=== PATIENT | male | born 1950 | race African-American/Black ===

== ENCOUNTER 2017-06-20 19:08 | Observation (INO) | payer MEDICARE, OTHER ==
[2017-06-20 19:32] LABS: Hemoglobin 13.9 g/dL (14.0-18.0); Mean Corpuscular HGB CONC 33.9 g/dL (32.0-36.0); Mean Corpuscular Hemoglobin 32.8 pg (27.0-31.0); Mean Corpuscular Volume 96.8 fl (80.0-94.0); Mean Platelet Volume 6.2 fL (7.4-10.4); Platelet Count 229 thou/uL (130-400); RBC Distribution Width 12.3 % (11.5-14.5); Red Blood Cell (RBC) Count 4.23 mill/uL (4.70-6.10); White Blood Cell (WBC) Count 5.6 thou/uL (4.8-10.8)
[2017-06-20 19:48] LABS: ALT (SGPT) 16 U/L (8-55); AST (SGOT) 18 U/L (5-34); Albumin 3.7 g/dL (3.4-4.8); Alkaline Phosphatase 83 U/L (40-150); Anion Gap 14 mmol/L (10-20); BUN (Urea Nitrogen) 15 mg/dL (8.4-25.7); Bilirubin, Total 0.9 mg/dL (0.2-1.2); CK (CPK) 117 U/L (30-200); Calc. Creatinine Clearance 0 mL/min (70-130); Calcium 9.7 mg/dL (7.8-10.44); Carbon Dioxide 24 mmol/L (23-31); Chloride 105 mmol/L (98-107); Estimated GFR-MDRD Greater than 90; Globulin 3.1 g/dL (2.4-3.5); Glucose 87 mg/dL (80-115); Potassium 3.9 mmol/L (3.5-5.1); Protein, Total 6.8 g/dL (5.8-8.1); Sodium 139 mmol/L (136-145)
[2017-06-20 19:49] LABS: Band 1 % (5-11); Eosinophils 8 % (0-10); Lymphocytes 53 % (21-51); MDiff Complete? YES; Monocytes 5 % (0-10); Neutrophil 26 % (42-75); PLT Morphology Comment Appears Adequate; RBC Morphology Normal; Reactive Lymphocytes 5 % (0-10)
[2017-06-20 19:52] LABS: CKMB 1.8 ng/mL (0-6.6); Troponin I Less than 0.010 ng/mL (< 0.028)
--- NOTE | 2017-06-20 20:11 | RAD ---
PORTABLE AP CHEST X-RAY 06/20/17 HISTORY: Syncopal episode x2. Patient complains of chest pain. Low blood pressure. COMPARISON: None available. FINDINGS: Cardiac silhouette and pulmonary vasculature are within normal limits. The lungs are clear. Osseous structures are intact. Vascular calcifications are seen in the thoracic aorta. IMPRESSION: No acute cardiopulmonary process. POS: [facility]
[2017-06-20] MEDS ORDERED: Acetaminophen 325 MG TAB PO PRN (22:06)
[2017-06-20] MEDS ORDERED: Nitroglycerin 0.4 MG TAB (25 Tab Bottle) PO PRN (22:06)
[2017-06-20] MEDS ORDERED: Ondansetron ODT 4 MG TAB PO PRN (22:06)
[2017-06-20] MEDS ORDERED: hydrALAZINE 20 MG/ML VIAL SLOW IVP SCH (22:15)
[2017-06-20 22:43] VITALS: BMI 21.1
[2017-06-20 23:00] LABS: Troponin I Less than 0.010 ng/mL (< 0.028)
--- NOTE | 2017-06-20 23:30 | PDOC.FPRHP ---
- History of Present Illness Chief Complaint: Syncopal episode, Chest pain 3 days ago History of Present Illness: 66 year old male with untreated HTN presents after a syncopal episode. He states he was sitting at a restaurant with his family waiting on food when he suddenly felt his vision go "fuzzy" and next thing he knew he had passed out. He denied any confusion upon waking up. He was immediately able to start communicating with family regarding the event. EMS arrived and noted his BP to be systolic in 70's. They started him on fluids during transport to ED. In the ED he was given 1L of NS and his BP responded rapidly. Patient currently denies weakness, dizziness, confusion, chest pain, or shortness of breath. Patient has never had a syncopal episode in the past. Patient did complain of an episode of chest pain 3 days ago that last for 2 hours and resolved on its own. Patient endorses a "gassy" feeling that sometimes radiates up into the chest, but otherwise has not discomfort. ED Course: Given ASA 324 mg PO in ED. - Allergies/Adverse Reactions Allergies Allergy/AdvReac Type Severity Reaction Status Date / Time No Known Allergies Allergy Verified 06/20/17 22:33 - Home Medications Medication Instructions Recorded Confirmed Type No Known [No Known] 06/20/17 06/20/17 History - History PMHx: HTN PSHx: None FHx: Non-contributory Social: Patient admits to smoking 1 PPD for the past 30 years. He drinks 2 beers a night. Patient denies drug use. - Review of Systems General: denies: fever/chills, weight/appetite/sleep changes Eyes: denies: vision changes ENT: denies: nasal congestion, rhinorrhea Respiratory: denies: cough, congestion, shortness of breath Cardiovascular: denies: chest pain, palpitation, edema Gastrointestinal: denies: nausea, vomiting, constipation, abdominal pain, GI bleeding Genitourinary: denies: incontinence, dysuria Skin: denies: rashes Musculoskeletal: denies: pain Psychological: denies: anxiety, depression - Vital signs BP: [220/90] HR: [71] RR: [14] Tmax: [97.8] Pox: [99]% on [RA] Wt: [63 kg] - Physical Exam Constitutional: NAD, awake, alert and oriented, well developed HEENT: normocephalic and atraumatic, PERRLA, EOMI, no scleral icterus Neck: supple Heart: RRR, normal S1/S2, no murmurs/rubs/gallops, pulses present, no edema Lungs: CTAB, no respiratory distress, no wheezing, no retractions Abdomen: soft, non-tender, bowel sounds present -Abdomen: mild abdominal distention Neurological: no focal deficit, CN II-XII intact Skin: no rash/lesions Heme/Lymphatic: no unusual bruising or bleeding Psychiatric: normal mood and affect, good judgment and insight FMR H&P: Results - Labs Result Diagrams: 06/20/17 19:26 06/20/17 19: Lab results: WBC 5.6 thou/uL (4.8-10.8) 06/20/17 19: Hgb 13.9 g/dL (14.0-18.0) L 06/20/17 19: Hct 41.0 % (42.0-52.0) L 06/20/17 19: MCV 96.8 fl (80.0-94.0) H 06/20/17 19: Plt Count 229 thou/uL (130-400) 06/20/17 19: Band Neuts % (Manual) 1 % (5-11) L 06/20/17 19: Sodium 139 mmol/L (136-145) 06/20/17 19: Potassium 3.9 mmol/L (3.5-5.1) 06/20/17 19: Chloride 105 mmol/L (98-107) 06/20/17 19: Carbon Dioxide 24 mmol/L (23-31) 06/20/17 19: BUN 15 mg/dL (8.4-25.7) 06/20/17 19: Creatinine 0.88 mg/dL (0.6-1.3) 06/20/17 19: Glucose 87 mg/dL (80-115) 06/20/17 19: Calcium 9.7 mg/dL (7.8-10.44) 06/20/17 19: Total Bilirubin 0.9 mg/dL (0.2-1.2) 06/20/17 19: AST 18 U/L (5-34) 06/20/17 19:26 ALT 16 U/L (8-55) 06/20/17 19:26 Alkaline Phosphatase 83 U/L (40-150) 06/20/17 19:26 Creatine Kinase 117 U/L (30-200) 06/20/17 19:26 CK-MB (CK-2) 1.8 ng/mL (0-6.6) 06/20/17 19:26 B-Natriuretic Peptide 59.8 pg/mL (0-100) 06/20/17 19:26 Serum Total Protein 6.8 g/dL (5.8-8.1) 06/20/17 19:26 Albumin 3.7 g/dL (3.4-4.8) 06/20/17 19:26 - Radiology Interpretation Chest x-ray Status: report reviewed by me Additional comment: No acute cardiopulmonary process FMR H&P: A/P - Problem List (1) Syncope Current Visit: Yes Status: Acute Code(s): R55 - SYNCOPE AND COLLAPSE (2) Atypical chest pain Current Visit: Yes Status: Acute Code(s): R07.89 - OTHER CHEST PAIN (3) Hypertensive urgency Current Visit: Yes Status: Acute Code(s): I16.0 - HYPERTENSIVE URGENCY (4) HTN (hypertension) Current Visit: Yes Status: Chronic Code(s): I10 - ESSENTIAL (PRIMARY) HYPERTENSION - Plan 1. Syncopal episode - Likely vasovagal - BP low on admission with systolic BP in the 70's; responded to 1L fluids - No history of pre-existing heart disease, but has history of untreated HTN - No prior syncopal episodes - EKG with t wave changes - Echo pending 2. Atypical chest pain - One episode of chest pain lasting 2 hours 3 days ago - Intermittent "gas" pains that radiate up into the chest - Heart score of 4 (t wave inversion, age, HTN, tobacco abuse history) - Stress test in AM - NPO at midnight - ASA PO QD - FLP, HgA1c, TSH pending - Nitro PRN - Simethicone for gas pains 3. HTN urgency - BP up to 247/116 - Patient asymptomatic - BP responded to 169/77 after 10 mg hydralazine - Started patient on 12.5 mg chlorthalidone PO daily - Hydralazine PRN for SBP >180 mmHg 4. HTN - Untreated - Started patient on chlorthalidone 5. DVT PPX: lovenox 6. Code status: Full Dispo: Admit to telemetry for observation. Plan for echo and cardiac stress test in AM. Plan to d/c patient home on HTN medication pending echo and stress test results. FMR H&P: Upper Level - Pertinent history 66 yo AAM with PMH of HTN p/w CP and SOB for last 3 days. - Pertinent findings BP 169/77, other vitals wnl Gen: NAD, well developed, A&Ox3 CV: RRR, no reproducible TTP, radial pulses equal BL Resp: normal effort, CTAB Abd: mild distension, BS+, NTTP - Plan Date/Time: 06/20/17 9620 I, Sami Smith MD, have evaluated this patient and agree with findings/plan as outlined by internet marketing intern resident. Pertinent changes/additions are listed here. 1. Atypical CP with EKG changes -HEART score of 4 with age, HTN, and T wave inversions -no recurrence of CP since presentation to hospital -trend troponins x3 -risk stratify with FLP, TSH, A1c -cardiac stress test in AM -nitro PRN 2. HTN -not on any home medications -likely initiate oral therapy -PRNs available, continue to monitor 3. FULL code 4. PPx: lovenox for VTE, no GI indicated disposition: Admit to telemetry observation, plan for cardiac stress test and continue to monitor. Attending Addendum - Attending Addendum Date/Time: 06/21/17 6910 I personally evaluated the patient and discussed the management with Dr. Rios on 06/20/17. I agree with the History, Examination, Assessment and Plan documented above with any addition or exceptions noted below. The patient presented following a syncopal episode. During my exam he was hypertensive with systolic 195. Patient will be admitted for tele monitoring, stress test and echo. Will begin antihypertensives.
[2017-06-21 02:01] LABS: Troponin I Less than 0.010 ng/mL (< 0.028)
[2017-06-21] MEDS ORDERED: Simethicone Chewable 80 MG TAB PO PRN (03:57)
[2017-06-21 05:01] LABS: Hemoglobin A1c 5.3 % (4.0-6.0)
[2017-06-21 05:04] LABS: Cardiac Risk 3.6 (Less than 4.5)
--- NOTE | 2017-06-21 05:59 | PDOC.FM ---
- Subjective Subjective: Mr. Reza seen at bedside this morning, he is feeling well. He has no complaints and there were no acute events overnight. Patient denies feeling lightheaded or presyncopal. Denies any chest pain, fevers, chills, dyspnea, n/v /d. He is ready for his stress test this morning. - Objective MAR Reviewed: Yes Vital Signs & Weight: Vital Signs (12 hours) Temp Pulse Resp BP Pulse Ox 06/21/17 03:12 98.7 F 77 20 178/81 H 95 06/20/17 23:13 74 14 169/77 H 96 06/20/17 22:48 97.8 F 71 14 06/20/17 22:23 220/90 H Weight Weight 63.049 kg I&O: 06/19/17 06/20/17 06/21/17 06:59 06:59 06:59 Intake Total 240 Balance 240 Result Diagrams: 06/20/17 19:26 06/20/17 19:26 <Ole Leon - Last Filed: 06/21/17 06:39> - Objective Vital Signs & Weight: Vital Signs (12 hours) Temp Pulse Resp BP BP BP BP 06/21/17 15:12 99.2 F 95 16 161/72 H 06/21/17 12:59 161/72 H 06/21/17 12:20 94 06/21/17 11:53 97.7 F 94 16 228/107 H 06/21/17 08:00 98.6 F 77 16 06/21/17 07:23 98.6 F 77 16 229/100 H 189/100 H 203/87 H Pulse Ox 06/21/17 15:12 97 06/21/17 12:59 06/21/17 12:20 06/21/17 11:53 98 06/21/17 08:00 06/21/17 07:23 97 Weight Weight 63.049 kg I&O: 06/20/17 06/21/17 06/22/17 06:59 06:59 06:59 Intake Total 240 Balance 240 Result Diagrams: 06/20/17 19:26 06/20/17 19:26 <Katerine Jamison - Last Filed: 06/21/17 16:10> Phys Exam - Physical Examination Constitutional: NAD HEENT: moist MMs, sclera anicteric Neck: no JVD, supple, full ROM Respiratory: no rales, no rhonchi, wheezing present, clear to auscultation bilateral Cardiovascular: RRR, no significant murmur Gastrointestinal: soft, non-tender, no distention Musculoskeletal: no edema, pulses present Neurological: non-focal, moves all 4 limbs Psychiatric: normal affect, A&O x 3 Skin: no rash <Ole Leon - Last Filed: 06/21/17 06:39> Dx/Plan (1) Syncope Code(s): R55 - SYNCOPE AND COLLAPSE Status: Acute (2) Atypical chest pain Code(s): R07.89 - OTHER CHEST PAIN Status: Acute (3) Hypertensive urgency Code(s): I16.0 - HYPERTENSIVE URGENCY Status: Acute (4) HTN (hypertension) Code(s): I10 - ESSENTIAL (PRIMARY) HYPERTENSION Status: Chronic - Plan Plan: 1. Syncopal episode - Likely vasovagal - BP low on admission with systolic BP in the 70's; responded to 1L fluids, patient's BP rapidly markus to 220s systolic - No history of pre-existing heart disease, but has history of untreated HTN - No prior syncopal episodes - EKG with t wave changes - Echo pending - TSH nl, BNP nl, Neg trop X3 2. Atypical chest pain - One episode of chest pain lasting 2 hours 3 days ago - Intermittent "gas" pains that radiate up into the chest - Heart score of 4 (t wave inversion, age, HTN, tobacco abuse history) - Stress test in AM - NPO at midnight - ASA PO QD - FLP, HgA1c, TSH, BNP all normal - Nitro PRN - Simethicone for gas pains 3. HTN urgency - BP up to 247/116 - Patient asymptomatic - BP responded to 169/77 after 10 mg hydralazine - Started patient on 12.5 mg chlorthalidone PO daily - Hydralazine PRN for SBP >180 mmHg - Continue to monitor closely 4. HTN - Untreated - Started patient on chlorthalidone 5. DVT PPX: lovenox 6. Code status: Full <Ole Leon - Last Filed: 06/21/17 06:39> (1) Syncope Code(s): R55 - SYNCOPE AND COLLAPSE Status: Acute (2) Atypical chest pain Code(s): R07.89 - OTHER CHEST PAIN Status: Acute (3) Hypertensive urgency Code(s): I16.0 - HYPERTENSIVE URGENCY Status: Acute (4) HTN (hypertension) Code(s): I10 - ESSENTIAL (PRIMARY) HYPERTENSION Status: Chronic <Katerine Jamison - Last Filed: 06/21/17 16:10> Attending Addendum - Attending Addendum Date/Time: 06/21/17 3087 I personally evaluated the patient and discussed the management with Dr. Leon. I agree with the History, Examination, Assessment and Plan documented above with any addition or exceptions noted below. Patient is feeling better this morning. Will have stress test, echo and carotid doppler today. <Katerine Jamison - Last Filed: 06/21/17 16:10>
[2017-06-21] MEDS: hydrALAZINE 20 MG/ML VIAL SLOW IVP PRN ×2 (08:08→12:20)
[2017-06-21] MEDS ORDERED: Chlorthalidone 25 MG TAB PO SCH (09:00)
[2017-06-21] MEDS ORDERED: Enoxaparin Sodium 40 MG/0.4 ML SYRINGE SC SCH (09:00)
--- NOTE | 2017-06-21 10:50 | ULT ---
CAROTID ULTRASOUND WITH DOPPLER: Date: 06/21/17 HISTORY: Syncope. COMPARISON: None. TECHNIQUE: Quesada scale, color flow, Doppler imaging, and spectral waveform analysis performed in the carotid and vertebral arteries. FINDINGS: RIGHT CAROTID: No significant atherosclerotic disease. Peak systolic velocity of the common carotid artery is 119.1 cm/second. Peak systolic velocity of the internal carotid artery is 74.2 cm/second. Systolic ICA/CCA ratio is 0.62. LEFT CAROTID: No significant atherosclerotic disease. Peak systolic velocity of the common carotid artery is 123.7 cm/second. Peak systolic velocity of the internal carotid artery is 86.6 cm/second. Systolic ICA/CCA ratio is 0.70. Antegrade flow in bilateral vertebral arteries. IMPRESSION: No sonographic evidence of hemodynamically significant stenosis. POS: [facility]
--- NOTE | 2017-06-21 12:55 | NM ---
NUCLEAR MEDICINE CARDIAC STRESS WITH EJECTION FRACTION AND WALL MOTION: Date: 06/21/17 HISTORY: Chest pain. Evaluate for myocardial infarction. Hypertension. Smoker. COMPARISON: None. TECHNIQUE: The patient was administered 10.6 mCi of technetium-99m sestamibi for rest imaging and 27 mCi of tech netium-99m sestamibi for stress imaging. FINDINGS: Homogeneous distribution of the radiotracer in the left ventricle on the attenuation correction image s. No reversibility or fixed defect. TID is 0.97. End-diastolic volume is 100 mL. End-systolic volume is 60 mL. CARDIAC GATING: Normal motion and thickening. Ejection fraction is 60%. IMPRESSION: 1. No reversibility. No fixed defect. 2. Ejection fraction is 60%. POS: [facility]
[2017-06-21 13:00] VITALS: BP 161/72
[2017-06-21] MEDS ORDERED: Amlodipine 5 MG TAB PO SCH ×2 (13:30→13:45)
[2017-06-21] MEDS ORDERED: Simethicone Chewable 80 MG TAB PO SCH ×2 (13:30→13:45)
[2017-06-21 15:47] VITALS: TEMP 99.2
--- NOTE | 2017-06-21 19:57 | DIS-2 ---
DATE OF ADMISSION: 06/20/2017 DATE OF DISCHARGE: 06/21/2017 RESIDENT: Ole Leon MD ADMITTING ATTENDING: Dr. Jamison. DISCHARGE ATTENDING: Dr. Jamison. CONSULTATIONS: None. PROCEDURES: 1. Chest x-ray on 06/20/2017, impression: No acute cardiopulmonary process. 2. Transthoracic echocardiogram on 06/21/2017 pending. 3. Nuclear stress test on 06/21/2017, impression: No reversibility, no fixed defect. Ejection frac tion is 60%. 4. Carotid Doppler study on 06/21/2017, impression: No sonographic evidence of hemodynamically sign ificant stenosis. PRIMARY IMPRESSION: 1. Atypical chest pain. 2. Hypertensive urgency. 3. Syncopal episode. DISCHARGE MEDICATIONS: 1. Amlodipine 5 mg p.o. daily. 2. Aspirin 81 mg p.o. daily. 3. Lipitor 80 mg p.o. at bedtime. 4. Chlorthalidone 12.5 mg p.o. daily. 5. Nitroglycerin 0.4 mg p.o. q.5 minute p.r.n. HISTORY OF PRESENT ILLNESS AND HOSPITAL COURSE: Sheldon Reza is a 66-year-old male with past [facility] history of untreated hypertension who presents after a syncopal episode. He was sitting in a res taurant with his family, waiting on food when he suddenly felt his vision got fuzzy and the next thin g he knew he passed out. He denied any confusion upon waking, he was immediately able to start commu nicating with his family regarding the event. When EMS arrived, his blood pressure was in the 70s sy stolic. They started him on IV fluids and transported him to the ED. His blood pressure responded r apidly to the IV fluids. He denied any weakness, dizziness, confusion, chest pain, shortness of pawan th. He has never had a syncopal episode like this in the past. The patient did, however, complain o f an episode of chest pain 3 days ago, lasted for 2 hours and resolved on its own. The patient endor ses a gassy feeling that sometimes radiates up to the chest, but otherwise had no discomfort. In the ED, he received 1 liter of normal saline and aspirin 324 mg p.o., patient was placed on observation for syncopal episode. Echo was done, which is pending. Carotid Doppler was done which was unremarka ble. Nuclear medicine stress test was done and was normal. The patient's syncopal episode was likel y secondary to vasovagal response, atypical chest pain, likely gastrointestinal in etiology. A stres s test was normal. Patient's blood pressure while in the hospital was controlled with IV hydralazine . Patient's blood pressure responded to Norvasc and chlorthalidone was also added to his regimen. T he patient was stable for discharge on 06/21/2017. He was asymptomatic and he agreed to close follow up with [facility]. Patient instructed to return to the ED if he has any other symptoms o f chest pain or syncopal type symptoms. 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 DISPOSITION: Stable. DISCHARGE INSTRUCTIONS: 1. Location: Home. 2. Diet: Heart healthy. 3. Activity: As tolerated. 4. 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
[2017-06-21] MEDS ORDERED: Atorvastatin Calcium 40 MG TAB PO SCH ×2 (21:00)
--- NOTE | 2017-06-21 22:36 | STRESS ---
Acquisition Time: 2017-06-21 10:02:36 Total Exercise Time: 00:06:01 Test Indications: CHEST PAIN Medications: Protocol: NA Max HR: 144 BPM 92% of Pred: 155 BPM Max BP: 210/094 mmHG Max Work Load: 7.0 METS RESTING ECG: NORMAL SINUS RHYTHM AT 75 BPM WITH LEFT VENTRICULAR HYPERTROPHY AND NON-SPECIFIC ST SEGMENT AND T-WAVE ABNORMALITIES SYMPTOMS: FATIGUE HYPERTENSIVE BLOOD PRESSURE RESPONSE ECTOPY: RARE PVCs ECG STRESS: NO SIGNIFICANT CHANGES INTERPRETATION: NEGATIVE ECG/AWAIT NUCLEAR IMAGES FOR DEFINITIVE DIAGNOSIS Confirmed by PATRICK HAAS M.D. ([id number]) on 06/21/2017 10:35:26 PM Referred By: Yvon MCKEON Confirmed By:PATRICK HAAS M.D.
[2017-06-22] MEDS ORDERED: Amlodipine 5 MG TAB PO SCH (09:00)
== END 2017-06-21 19:24 | disposition home or self-care (01) ==
LOC: ERS 19:08 → 2SW 21:54
PROVIDERS: ADMIT Family Medicine; ATTEND Family Medicine
DX: R55 Syncope and collapse (principal); I16.0 Hypertensive urgency; R07.89 Other chest pain; I10 Essential (primary) hypertension; F17.210 Nicotine dependence, cigarettes, uncomplicated; Z79.899 Other long term (current) drug therapy
CPT/HCPCS: 36415; 71045; 78452; 80053; 80061; 82550; 82553; 83036; 83880; 84443; 84484; 85025; 93005; 93017; 93306; 93880; 96374; 96376; 99406; A9500; G0378; J0360

== ENCOUNTER 2019-06-08 14:51 | Outpatient (CLI) | payer OTHER ==
--- NOTE | 2019-06-08 15:03 | RAD ---
XR Chest Pa Lat STANDARD History: Cough. Shortness of breath Comparison: None. Findings: Lungs are clear. No pneumothorax or effusion. Cardiac silhouette and mediastinal contours a re within normal limits. No acute osseous abnormality. Impression: No acute intrathoracic abnormality.
== END 2019-06-08 14:52 | disposition home or self-care (01) ==
LOC: BICRAD 14:51
PROVIDERS: ATTEND Physician Assistant
DX: R05 Cough (principal); R06.02 Shortness of breath
CPT/HCPCS: 36415; 71046; 80053; 85025

== ENCOUNTER 2023-03-26 19:05 | Emergency (ER) | payer BC, OTHER ==
[2023-03-26 20:10] LABS: #Basophils 0.1 thou/uL (0.0-0.2); #Eosinphils 0.3 thou/uL (0.0-0.7); #Monocytes 0.3 thou/uL (0.11-0.59); #Neutrophils 2.3 thou/uL (1.40-6.50); %Eosinophils 6.2 % (0.0-10.0); %Lymphocytes 39.2 % (21.0-51.0); %Monocytes 6.6 % (0.0-10.0); %Neutrophils 46.8 % (42.0-75.0); Hematocrit 41.1 % (42.0-52.0); Hemoglobin 13.6 g/dL (14.0-18.0); Mean Corpuscular HGB CONC 33.1 g/dL (32.0-36.0); Mean Corpuscular Hemoglobin 32.6 pg (27.0-31.0); Mean Corpuscular Volume 98.6 fl (78.0-98.0); Mean Platelet Volume 8.8 fL (7.4-10.4); Platelet Count 253 10x3/uL (130-400); RBC Distribution Width 13.3 % (11.5-14.5); Red Blood Cell (RBC) Count 4.17 mill/uL (4.70-6.10)
[2023-03-26 20:33] LABS: ALT (SGPT) 11 U/L (8-55); AST (SGOT) 19 U/L (5-34); Albumin 3.7 g/dL (3.4-4.8); Alkaline Phosphatase 101 U/L (40-110); Anion Gap 17 mmol/L (10-20); BUN (Urea Nitrogen) 15 mg/dL (8.4-25.7); Bilirubin, Total 0.3 mg/dL (0.2-1.2); Calc. Creatinine Clearance 0 mL/min (70-130); Calcium 9.5 mg/dL (7.8-10.44); Carbon Dioxide 20 mmol/L (23-31); Chloride 104 mmol/L (98-107); Estimated GFR 77; Globulin 3.7 g/dL (2.4-3.5); Glucose 79 mg/dL (83-110); Potassium 4.1 mmol/L (3.5-5.1); Protein, Total 7.4 g/dL (5.8-8.1); Sodium 137 mmol/L (136-145)
[2023-03-26 20:37] LABS: Troponin I Less than 0.010 ng/mL (< 0.028)
== END 2023-03-26 22:27 | disposition home or self-care (01) ==
LOC: ERS 19:05
DX: R06.00 Dyspnea, unspecified (principal); I10 Essential (primary) hypertension; F17.210 Nicotine dependence, cigarettes, uncomplicated
CPT/HCPCS: 36415; 71045; 80053; 83880; 84484; 85025; 93005